=== PATIENT | male | born 1970 | race Caucasian/White ===

== ENCOUNTER 2017-06-20 10:37 | Inpatient (IN) | payer BC ==
[~2017-06-20] VITALS: Ht 170.2 cm; Wt 78.6 kg
[2017-06-20 10:50] VITALS: Ht 170.2 cm; Wt 78.6 kg
[2017-06-20 12:10] LABS: BASOPHIL % 0 % (0-2); PLATELET COUNT 481 x10^3mcL (130-400); RED CELL DISTRIBUTION WIDTH 26.1 % (11.5-14.5)
[2017-06-20 12:11] LABS: rbc morphology (normal/abnorm) ABNORMAL (NORMAL)
[2017-06-20 12:34] LABS: ALKALINE PHOSPHATASE 44 U/L (46-116); ALT/SGPT 15 U/L (16-63); AST/SGOT 14 U/L (15-37); BILIRUBIN TOTAL 0.4 mg/dL (0.20-1.00); CALCIUM 8.3 mg/dL (8.5-10.1); CARBON DIOXIDE 27.1 mmol/L (21-32); CHLORIDE SERUM 103 mmol/L (98-107); CREATININE SERUM 0.9 mg/dL (0.7-1.3); GFR1 > 60 mL/min; GLUCOSE SERUM 92 mg/dL (74-106); SODIUM SERUM 138 mmol/L (136-145); TOTAL PROTEIN, SERUM 6.5 g/dL (6.4-8.2)
[2017-06-20 12:39] LABS: ALBUMIN 2.6 g/dL (3.4-5.0)
[2017-06-20] MEDS ORDERED: FERROUS SULFAT325 M2 PO (14:04)
[2017-06-20] MEDS ORDERED: [UNRECOGNIZED DRUG - OTHER] PO (14:04)
[2017-06-20] MEDS ORDERED: PENTASA500 M1 PO (14:05)
[2017-06-20 15:14] VITALS: BP 134/77
[2017-06-20 16:16] LABS: RED BLOOD CELLS 4.72 M/mm3 (4.52-5.90)
[2017-06-20 16:17] LABS: MAGNESIUM 2.3 mg/dL (1.8-2.4); PHOSPHOROUS 3.8 mg/dL (2.5-4.9)
[2017-06-20 16:47] LABS: IRON 9 ug/dL (65-170); TOTAL IRON BINDING CAPACITY 222 ug/dL (250-450)
[2017-06-20 16:52] LABS: T3 TOTAL 1.27 ng/mL
[2017-06-20 16:56] LABS: FREE T4 1.51 ng/dL (0.76-1.46); FREE THYROXINE INDEX 3.7 ug/dL (1.4-4.5); T4(THYROXINE) 10.1 ug/dL (4.7-13.3)
[2017-06-20 17:16] VITALS: BP 109/64
[2017-06-20 18:04] LABS: microscopic required? NO
[2017-06-20 18:23] LABS: UA SPECIFIC GRAVITY >=1.030 (1.005-1.035); urine erythrocyte NEGATIVE (NEGATIVE)
[2017-06-20 18:48] LABS: AMPHETAMINE QUAL UR NONE DETECTED (NEG <=1000)
[2017-06-20 20:43] VITALS: BP 120/72
[2017-06-21 06:15] VITALS: BP 119/70
[2017-06-21 06:54] LABS: CALCIUM 7.7 mg/dL (8.5-10.1); CARBON DIOXIDE 24.1 mmol/L (21-32); CHLORIDE SERUM 107 mmol/L (98-107); CREATININE SERUM 0.6 mg/dL (0.7-1.3); GFR1 > 60 mL/min; GLUCOSE SERUM 75 mg/dL (74-106); POTASSIUM SERUM 3.4 mmol/L (3.5-5.1); SODIUM SERUM 139 mmol/L (136-145)
[2017-06-21 07:35] LABS: PLATELET COUNT 442 x10^3mcL (130-400); RED CELL DISTRIBUTION WIDTH 26.3 % (11.5-14.5)
[2017-06-21 09:20] VITALS: BP 129/78
[2017-06-21 12:33] LABS: BAND NEUTROPHIL 15 % (0-10); BASOPHIL 0 % (0-2); MONOCYTE 17 % (0-7); SEGMENTED NEUTROPHILS 49 % (37-75); rbc morphology (normal/abnorm) ABNORMAL (NORMAL)
[2017-06-21 12:50] VITALS: BP 115/61
[2017-06-21 17:30] VITALS: BP 129/64
[2017-06-21 20:54] VITALS: BP 108/72
[2017-06-22 05:50] VITALS: BP 111/67
[2017-06-22 07:21] LABS: BASOPHIL % 0.4 % (0-2)
[2017-06-22 07:30] LABS: CALCIUM 7.6 mg/dL (8.5-10.1); CARBON DIOXIDE 26.5 mmol/L (21-32); CHLORIDE SERUM 106 mmol/L (98-107); CREATININE SERUM 0.6 mg/dL (0.7-1.3); GFR1 > 60 mL/min; GLUCOSE SERUM 92 mg/dL (74-106); SODIUM SERUM 138 mmol/L (136-145)
[2017-06-22 07:49] LABS: PLATELET COUNT 416 x10^3mcL (130-400); RED CELL DISTRIBUTION WIDTH 25.5 % (11.5-14.5)
[2017-06-22 07:51] LABS: rbc morphology (normal/abnorm) ABNORMAL (NORMAL)
[2017-06-22 09:27] VITALS: BP 120/66
[2017-06-22 15:05] VITALS: BP 120/66
[2017-06-22] MEDS ORDERED: CIPRO500 MG PO (16:16)
[2017-06-22] MEDS ORDERED: FLA500 PO (16:16)
[2017-06-22] MEDS ORDERED: LANSOPRAZOLE30 M2 PO (16:16)
[2017-06-22] MEDS ORDERED: NATURE'S BLEND F1 MG PO (16:16)
[2017-06-22] MEDS ORDERED: LIALDA1.2 GM PO ×2 (16:37→16:42)
[2017-06-22] MEDS ORDERED: UCERIS9 MG PO (16:56)
[2017-06-22] MEDS ORDERED: SLOFE PO (17:02)
== END 2017-06-22 17:29 | disposition home or self-care (01) | DRG 380 ==
LOC: ED 10:37 → DU 12:52 → ED 12:52 → DU 12:59
PROVIDERS: Emergency Medicine; Family Medicine; Internal Medicine
PROC: 0DBB8ZX Excision of Ileum, Via Natural or Artificial Opening Endoscopic, Diagnostic (ICD-10-PCS; 2017-06-21)
PROC: 0DBE8ZX Excision of Large Intestine, Via Natural or Artificial Opening Endoscopic, Diagnostic (ICD-10-PCS; 2017-06-21)
PROC: 0DB58ZX Excision of Esophagus, Via Natural or Artificial Opening Endoscopic, Diagnostic (ICD-10-PCS; principal; 2017-06-21 08:00)
PROC: 0DB68ZX Excision of Stomach, Via Natural or Artificial Opening Endoscopic, Diagnostic (ICD-10-PCS; 2017-06-21 08:00)
DX: K22.11 Ulcer of esophagus with bleeding (principal); E43 Unspecified severe protein-calorie malnutrition; K51.90 Ulcerative colitis, unspecified, without complications; B37.0 Candidal stomatitis; D50.9 Iron deficiency anemia, unspecified; E87.6 Hypokalemia; Z68.23 Body mass index [BMI] 23.0-23.9, adult
CPT/HCPCS: 43235; 45378; 83880; 84439; 87046; 87046-59; C9113; J1200; J1610; J1956; J2250; J2310; J2405; J3010; J3480; J3490; J7030; Q9966